=== PATIENT | male | born 1995 ===

== ENCOUNTER → 2019-11-17 | Outpatient (REF) | payer OTHER ==
[2019-11-17 13:06] LABS: PLATELET COUNT, AUTOMATED 176 10^3/uL (150-450)
[2019-11-17 13:17] LABS: INR 1.09; PROTHROMBIN TIME 13.8 SECONDS (11.8-14.0)
[2019-11-17 13:18] LABS: PARTIAL THROMBOPLASTIN TIME 28.4 SECONDS (25.0-38.4)
== END ==
LOC: M LABDRAW1 12:52
PROVIDERS: ATTEND Physician Assistant
DX: Z01.812 Encounter for preprocedural laboratory examination (principal); M47.817 Spondylosis without myelopathy or radiculopathy, lumbosacral region